=== PATIENT | female | born 1990 | race Caucasian/White ===

== ENCOUNTER 2017-12-12 17:57 | Emergency (ER) | payer MEDICAID ==
[2017-12-12 18:04] VITALS: O2SAT 98
[2017-12-12] MEDS ORDERED: NS 1,000 ML IV ONE (18:26)
[2017-12-12] MEDS ORDERED: DEXAMETHASONE 10 MG/ML VIAL IVP ONE (18:26)
--- NOTE | 2017-12-12 18:26 | EDPHY ---
General - History Smoking Status: Current every day smoker Time Seen by Provider: 12/12/17 18:13 Narrative: The patient was evaluated and managed by the physician's anesthesiologist assistant. My cosignature indicates that I reviewed the chart and I agree with the findings and plan of care as documented. I am the secondary supervising physician. ( Michelle Jain) CHIEF COMPLAINT: Sore throat, flu-like symptoms HISTORY OF PRESENT ILLNESS: Patient presents with complaints of severe sore throat. Symptoms started last night when she tried to go to bed. She has pain on both sides of throat, with the left is greater than the right. It is severe. Able to tolerate liquids but no solids. She also has body aches, fevers and chills, cough, weakness, arthralgia. Occasional headache. No neck pain or stiffness. Symptoms are constant. They do not improve with liquids or oral anti-inflammatories. She has no chest pain but does report a mucus type cough. She reports diagnosis of pneumonia just before years, treated at [facility]. She has no history of peritonsillar abscess but does have recurrent strep infections. No other associated complaints or modifying factors. REVIEW OF SYSTEMS: Ten systems reviewed and are negative unless otherwise noted in the HPI PCP: [facility] SPECIALISTS: Seen Psychiatry outpatient PAST MEDICAL HISTORY: PTSD, anxiety, depression. Recent diagnosis of pneumonia. Questionable diagnosis of ADD PAST SURGICAL HISTORY: [place] tooth extraction remotely SOCIAL HISTORY: Daily smoker. Occasional marijuana use. Does not currently work FAMILY HISTORY: Noncontributory EXAMINATION General Appearance: Alert, no distress Head: normocephalic, atraumatic Eyes: Pupils equal and round, no conjunctival pallor or injection ENT, Mouth: Mucous membranes moist. Uvula is midline. The tonsils are significantly enlarged with exudate. The tonsils are not touching. The uvula does not deviate. It does come into contact with the left tonsil but remains midline. There is no trismus. Her airway is widely patent. Neck: Normal inspection, supple, non-tender. No meningeal signs. Respiratory: Mild rhonchi throughout. No wheezing. No crackles. No diminishment. No retractions or distress Cardiovascular: Regular rate and rhythm. No murmur Gastrointestinal: Abdomen is soft and nontender Back: non-tender, no bony abnormalities Neurological: A&O, nonfocal, normal gait Skin: Warm and dry, no rash. No petechiae or purpura Extremities: Nontender, no pedal edema Psychiatric: Mood and affect normal DIFFERENTIAL DIAGNOSES: Including but not limited to strep tonsillitis, viral pharyngitis, bacterial pharyngitis, peritonsillar abscess, influenza, pneumonia, upper respiratory infection MDM: 6:20 p.m. Acute tonsillitis with influenza type symptoms as well. She does have a significant exudate of tonsillitis. The left tonsil is larger than the right. Uvula is not deviated away from the left tonsil. There is no trismus. Vital signs are within normal limits. She does have some rhonchi on auscultation. She also has diagnosis of pneumonia approximately a month and a half ago and continues to smoke. I have ordered chest x-ray, laboratory studies, IV fluid. I will discuss with Dr. Jain 6:35 p.m. I discussed the case with Dr. Jain, and we are in agreement that we will discuss the case with ENT at this time. 6:43 p.m. Case discussed with the on-call ENT PA, Freida Mtz. Based on my description of the patient's history of present illness and exam she agrees with no surgical intervention or CT scan at this time. She does agree with and recommend Decadron and clindamycin with repeat, serial evaluations over 24-48 hours. 7:15 p.m. Rapid strep test is negative. CBC reveals leukocytosis but Laboratory studies are otherwise unremarkable. I have ordered CT scan of the neck soft tissue to evaluate for the possibility of developing peritonsilar abscess. 7:30 p.m. I re-evaluated the patient. I informed her of the CT scan of the neck soft tissue and IV clindamycin. She is refusing the CT scan. She would like to go home at this time. We discussed the risks, benefits and alternatives. Although my clinical suspicion is low for abscess, I cannot rule this out 100% by clinical examination. I do not appreciate any fluctuance of the tonsils, but this is why I ordered a CT scan. We discuss all of this and she is willing to assume the risk of being discharged home without scan. I Will start her on clindamycin. I will provide short course of pain medication. Also provide another dose of Decadron tomorrow. She has strict ED precautions to return should she have any worsening symptoms or difficulty breathing. She is also instructed to return to emergency department tomorrow for re-evaluation and again on Thursday with the ENT physician as provided. She voiced her understanding of this and she will be discharged home at this time. She is in stable condition with airway widely patent. SUPERVISION: Patient was independently examined, but I discussed the case with my secondary supervising physician Dr. Jain ([facility]) - Objective Vital Signs: Initial Vital Signs Temperature (C) 98.2 F 12/12/17 18:01 Heart Rate 94 12/12/17 18:01 Respiratory Rate 18 12/12/17 18:01 Blood Pressure 106/64 12/12/17 18:01 O2 Sat (%) 98 12/12/17 18:01 O2 Delivery Mode Room Air Allergies/Adverse Reactions: No Known Allergies Allergy (Unverified 12/12/17 18:00) Home Medications: Medication Instructions Recorded ARIPiprazole [Abilify 2 mg (*)] 2 mg PO DAILY 12/12/17 Acetaminophen/Codeine 300/30Mg 1 each PO Q6 PRN #7 tab 12/12/17 [Tylenol #3 (*)] Clindamycin 300 mg PO Q6 #80 cap 12/12/17 Dexamethasone [Decadron 4 MG (*)] 8 mg PO DAILY #2 tab 12/12/17 Naproxen [Naprosyn] 500 mg PO 12/12/17 Ondansetron Odt [Zofran Odt 4 mg 4 mg PO Q6 PRN #12 tab 12/12/17 (*)] buPROPion [Wellbutrin] 100 mg PO 12/12/17 clonazePAM [CLONAZEPAM] 0.5 mg PO 12/12/17 Laboratory Results: Laboratory Results 12/12/17 18:30 12/12/17 18:30 12/12/17 12/12/17 12/12/17 Unknown 18:30 18:30 WBC RBC Hgb Hct MCV MCH MCHC RDW Plt Count MPV Neut % (Auto) Lymph % (Auto) [place] % (Auto) Eos % (Auto) Baso % (Auto) Nucleat RBC Rel Count Absolute Neuts (auto) Absolute Lymphs (auto) Absolute Monos (auto) Absolute Eos (auto) Absolute Basos (auto) Absolute Nucleated RBC Immature Gran % Immature Gran # Sodium Potassium Chloride Carbon Dioxide Anion Gap BUN Creatinine Estimated GFR Glucose Calcium Beta HCG, Qual Nasal Influenza A PCR NEGATIVE FOR FLU A (NEGATIVE) Nasal Influenza B PCR NEGATIVE FOR FLU B (NEGATIVE) Group A Strep Screen NEGATIVE (NEGATIVE) Group A Strep DNA Pending 12/12/17 12/12/17 12/12/17 18:30 18:30 18:30 WBC 18.11 10^3/uL H 10^3/uL (3.80-9.50) RBC 4.22 10^6/uL 10^6/uL (4.18-5.33) Hgb 12.2 g/dL L g/dL (12.6-16.3) Hct 36.9 % L % (38.0-47.0) MCV 87.4 fL fL (81.5-99.8) MCH 28.9 pg pg (27.9-34.1) MCHC 33.1 g/dL g/dL (32.4-36.7) RDW 13.3 % % (11.5-15.2) Plt Count 265 10^3/uL 10^3/uL (150-400) MPV 10.1 fL fL (8.7-11.7) Neut % (Auto) 85.6 % H % (39.3-74.2) Lymph % (Auto) 6.9 % L % (15.0-45.0) [place] % (Auto) 6.8 % % (4.5-13.0) Eos % (Auto) 0.0 % L % (0.6-7.6) Baso % (Auto) 0.3 % % (0.3-1.7) Nucleat RBC Rel Count 0.0 % % (0.0-0.2) Absolute Neuts (auto) 15.51 10^3/uL H 10^3/uL (1.70-6.50) Absolute Lymphs (auto) 1.25 10^3/uL 10^3/uL (1.00-3.00) Absolute Monos (auto) 1.23 10^3/uL H 10^3/uL (0.30-0.80) Absolute Eos (auto) 0.00 10^3/uL L 10^3/uL (0.03-0.40) Absolute Basos (auto) 0.05 10^3/uL 10^3/uL (0.02-0.10) Absolute Nucleated RBC 0.00 10^3/uL 10^3/uL (0-0.01) Immature Gran % 0.4 % % (0.0-1.1) Immature Gran # 0.07 10^3/uL 10^3/uL (0.00-0.10) Sodium 141 mEq/L mEq/L (135-145) Potassium 3.5 mEq/L mEq/L (3.5-5.2) Chloride 105 mEq/L mEq/L (97-110) Carbon Dioxide 20 mEq/l L mEq/l (22-31) Anion Gap 16 mEq/L mEq/L (8-16) BUN 7 mg/dL mg/dL (7-23) Creatinine 0.8 mg/dL mg/dL (0.6-1.0) Estimated GFR > 60 Glucose 101 mg/dL H mg/dL (70-100) Calcium 9.7 mg/dL mg/dL (8.5-10.4) Beta HCG, Qual NEGATIVE Nasal Influenza A PCR Nasal Influenza B PCR Group A Strep Screen Group A Strep DNA Medications Given: Discontinued Medications Clindamycin (Clindamycin) 300 mg PO EDNOW ONE PRN Reason: Protocol Stop: 12/12/17 19:32 Last Admin: 12/12/17 19:39 Dose: 300 mg Dexamethasone (Decadron Injection) 10 mg IVP EDNOW ONE Stop: 12/12/17 18:27 Last Admin: 12/12/17 18:42 Dose: 10 mg Diphenhydramine HCl (Benadryl Injection) 25 mg IVP EDNOW ONE Stop: 12/12/17 18:27 Last Admin: 12/12/17 18:42 Dose: 25 mg Sodium Chloride (Ns) 1,000 mls @ 0 mls/hr IV EDNOW ONE; Wide Open PRN Reason: Protocol Stop: 12/12/17 18:27 Last Admin: 12/12/17 18:42 Dose: 1,000 mls Clindamycin Phosphate/Dextrose (Cleocin 900 Mg (Premix)) 50 mls @ 100 mls/hr IV EDNOW ONE PRN Reason: Protocol Stop: 12/12/17 19:46 Last Admin: 12/12/17 19:31 Dose: Not Given Departure - Departure Disposition: Home, Routine, Self-Care Clinical Impression: Acute bacterial tonsillitis Acute pharyngitis Qualifiers: Pharyngitis/tonsillitis etiology: unspecified etiology Qualified Code(s): J02.9 - Acute pharyngitis, unspecified Condition: Good Instructions: Pharyngitis (ED), Tonsillitis (ED) Additional Instructions: 1. Prescription medications as discussed to completion 2. Return to emergency department immediately for worsening symptoms, shortness of breath, difficulty opening her mouth, fever, intolerance of liquids 3. Return to emergency department on Thursday for re-evaluation 4. Follow up with ENT physician on Thursday for re-evaluation outpatient Referrals: Nelson Pacheco MD [Medical Doctor] - As per Instructions [facility],. [Clinic] - As per Instructions Prescriptions: Acetaminophen/Codeine 300/30Mg [Tylenol #3 (*)] 1 each PO Q6 PRN #7 tab PRN Reason: Pain, Mild Clindamycin 300 mg PO Q6 #80 cap Dexamethasone [Decadron 4 MG (*)] 8 mg PO DAILY #2 tab Ondansetron Odt [Zofran Odt 4 mg (*)] 4 mg PO Q6 PRN #12 tab PRN Reason: Nausea/Vomiting, Use 1st
[2017-12-12 18:44] LABS: PLATELET COUNT 265 10^3/uL (150-400)
[2017-12-12] MEDS ORDERED: CLINDAMYCIN 900 MG/DEXTROSE 50 ML IV ONE (19:17)
[2017-12-12] MEDS ORDERED: CLINDAMYCIN 150 MG CAP PO ONE (19:31)
[2017-12-12 19:42] VITALS: BP 117/73; PULSE 92; RESP 20; TEMP 98.1
== END 2017-12-12 20:17 | disposition home or self-care (01) ==
DX: J03.90 Acute tonsillitis, unspecified (principal); F17.200 Nicotine dependence, unspecified, uncomplicated
CPT/HCPCS: 96374; J1100; J1200

== ENCOUNTER 2018-01-28 11:42 | Inpatient (IN) | payer MEDICAID ==
[2018-01-28] MEDS ORDERED: ONDANSETRON 4 MG/2 ML VIAL IVP ONE (12:14)
[2018-01-28 12:35] LABS: PLATELET COUNT 266 10^3/uL (150-400)
--- NOTE | 2018-01-28 13:00 | EDPHY ---
General Time Seen by Provider: 01/28/18 12:46 Narrative: CHIEF COMPLAINT: Flank pain HISTORY OF PRESENT ILLNESS: Patient presents with complains of 3 days history of right-sided flank abdominal pain. Gradual onset. Constant duration. Rated as severe, 10/10. No position of comfort. Nausea, vomiting and sweating. Subjective fever at home. No trauma or injury. She has no dysuria urinary frequency, but she never does when she has infections. She feels this is the same as previous "kidney infections." No previous abdominal surgeries. No other associated complaints or modifying factors. REVIEW OF SYSTEMS: Ten systems reviewed and are negative unless otherwise noted in the HPI PCP: [facility] SPECIALISTS: None PAST MEDICAL HISTORY: Pyelonephritis, anxiety, depression, tonsillitis PAST SURGICAL HISTORY: No recent surgeries SOCIAL HISTORY: Daily smoker. Occasional marijuana use. No drug use. Does not work FAMILY HISTORY: Noncontributory EXAMINATION General Appearance: Alert, no distress. Well-developed well-nourished. Diaphoretic. In obvious discomfort Head: normocephalic, atraumatic Eyes: Pupils equal and round, no conjunctival pallor or injection ENT, Mouth: Mucous membranes moist Neck: Normal inspection, supple, non-tender Respiratory: Lungs are clear to auscultation. No wheezing, rhonchi or crackles Cardiovascular: Tachycardic rate. Regular rhythm. Gastrointestinal: Abdomen is soft and nondistended. There is moderate to severe tenderness in the right flank and right side of the abdomen. No guarding. No tympany. No rigidity. Bowel sounds are symmetric in all quadrants. Back: non-tender, no bony abnormalities Neurological: A&O, nonfocal, normal gait Skin: Warm and dry, no rash no petechiae or purpura Extremities: Nontender, no pedal edema Psychiatric: Mood and affect normal DIFFERENTIAL DIAGNOSES: Including but not limited to pyelonephritis, sepsis, urosepsis, renal colic, ureteral colic, colitis, diverticulitis, appendicitis, cholecystitis, cholelithiasis MDM: 12:50 p.m. Right flank pain and right-sided abdominal pain of 3 days duration. Pain is described as typical for previous pyelonephritis. CBC was obtained prior to my examination revealed leukocytosis of 22. The differential is pending. She is febrile time arrival in tachycardic. Thus I have ordered sepsis workup. This includes blood cultures and lactic acid. IV fluid infusing. She is in moderate amount of pain of order IV pain medication as well. I have discussed with Dr. Bhatia. 1:05 p.m. Patient does have abnormal liver functions with transaminitis, hyperbilirubinemia, elevated alkaline phosphatase. Her urine dip is negative for any abnormalities. I have ordered ultrasound of the gallbladder. 1:35 p.m. Lactic acid is normal 1.7. Urinalysis is positive with leukocytes, red blood cells, urobilinogen, nitrates. Ultrasound pending. 2:10 p.m. Patient re-evaluated. Ultrasound has been performed. The official interpretation is pending, but there was no obvious abnormality per auto emissions technician. I have re-evaluated the patient she is still in significant amount of pain. She is about to receive another dose of IV pain medication. 2:15 p.m. Case discussed with hospitalist Dr. Ludy Salcedo. She will admit the patient to her service. General surgery consultation is pending. She is admitted in stable condition. 2:25 p.m. Notified by radiologist Dr. Hernandez. Ultrasound is unremarkable. No abnormality of the gallbladder or right kidney detected. No dilatation of the common bile duct. 2:30 p.m. Case discussed with surgeon Dr. Valladares. He will provide consultation. 2:[address] Salcedo is currently examining the patient. We also discussed the possibility of ascending cholangitis and Dr. Salcedo as at of [facility] for this. Patient is admitted in stable condition. At this point she does meet criteria for sepsis from pyelonephritis. She does not meet criteria for severe sepsis or septic shock. SUPERVISION: Patient was independently examined, but I discussed the case with my primary supervising physician Dr. Bhatia. - Diagnostics Imaging Results: Imaging Impressions Abdomen Ultrasound 01/28/18 13:08 Impression: 1. No acute findings in the abdomen. 2. Elongated right hepatic lobe, which could be related to hepatomegaly or a Tyler's lobe (normal variant). Findings discussed with Inderjit Davenport PA-C on January 28, 2018 at 1426 hours. - History Smoking Status: Current every day smoker - Objective Vital Signs: Initial Vital Signs Temperature (C) 102.4 F H 01/28/18 11:45 Heart Rate 101 H 04/12/18 11:45 Respiratory Rate 16 01/28/18 11:45 Blood Pressure 105/73 01/28/18 11:45 O2 Sat (%) 97 01/28/18 11:45 O2 Delivery Mode Room Air Allergies/Adverse Reactions: No Known Allergies Allergy (Unverified 12/12/17 18:00) Home Medications: Medication Instructions Recorded ARIPiprazole [Abilify 2 mg (*)] 2 mg PO HS 12/12/17 Naproxen [Naprosyn] 500 mg PO BID PRN 12/12/17 Albuterol [Proventil Inhaler HFA 1 - 2 puffs IH Q4H PRN 01/28/18 (*)] Lisdexamfetamine Dimesylate 20 mg PO DAILY 01/28/18 [Vyvanse] buPROPion XL [Wellbutrin Xl] 150 mg PO DAILY 01/28/18 Laboratory Results: Laboratory Results 01/28/18 11:50 01/28/18 11:50 01/28/18 01/28/18 01/28/18 13:05 12:58 12:54 WBC RBC Hgb Hct MCV MCH MCHC RDW Plt Count MPV Neut % (Auto) Lymph % (Auto) [place] % (Auto) Eos % (Auto) Baso % (Auto) Nucleat RBC Rel Count Absolute Neuts (auto) Absolute Lymphs (auto) Absolute Monos (auto) Absolute Eos (auto) Absolute Basos (auto) Absolute Nucleated RBC Immature Gran % Seg Neutrophils % Band Neutrophils % Lymphocytes % Monocytes % Immature Gran # Absolute Seg Neuts Absolute Band Neuts Absolute Lymphocytes Absolute Monocytes RBC/WBC/PLT Morphology Platelet Estimate PT 14.7 SEC SEC (12.0-15.0) INR 1.13 (0.83-1.16) APTT 31.1 SEC SEC (23.0-38.0) VBG Lactic Acid 1.7 mmol/L mmol/L (0.7-2.1) Sodium Potassium Chloride Carbon Dioxide Anion Gap BUN Creatinine Estimated GFR Glucose Calcium Total Bilirubin Conjugated Bilirubin Unconjugated Bilirubin AST ALT Alkaline Phosphatase Total Protein Albumin Lipase Beta HCG, Qual Urine Color ARACELIS Urine Appearance MODERATELY TURBID Urine pH 5.0 (5.0-7.5) Ur Specific [place] 1.016 (1.002-1.030) Urine Protein 2+ H (NEGATIVE) Urine Ketones 1+ H (NEGATIVE) Urine Blood 2+ H (NEGATIVE) Urine Nitrate POSITIVE H (NEGATIVE) Urine Bilirubin POSITIVE H (NEGATIVE) Urine Urobilinogen 4.0 EU H EU (0.2-1.0) Ur Leukocyte Esterase 2+ H (NEGATIVE) Urine RBC 15-25 /hpf H /hpf (0-3) Urine WBC 50-182 /hpf H /hpf (0-3) Ur Epithelial Cells 1+ /lpf /lpf (NONE-1+) Urine Bacteria 1+ /hpf H /hpf (NONE SEEN) Urine Mucus 2+ /lpf H /lpf (NONE-1+) Urine Glucose NEGATIVE (NEGATIVE) Hepatitis A IgM Ab Hep Bs Antigen Hep B Core IgM Ab Hepatitis C Antibody 01/28/18 01/28/18 01/28/18 12:54 12:54 11:50 WBC RBC Hgb Hct MCV MCH MCHC RDW Plt Count MPV Neut % (Auto) Lymph % (Auto) [place] % (Auto) Eos % (Auto) Baso % (Auto) Nucleat RBC Rel Count Absolute Neuts (auto) Absolute Lymphs (auto) Absolute Monos (auto) Absolute Eos (auto) Absolute Basos (auto) Absolute Nucleated RBC Immature Gran % Seg Neutrophils % Band Neutrophils % Lymphocytes % Monocytes % Immature Gran # Absolute Seg Neuts Absolute Band Neuts Absolute Lymphocytes Absolute Monocytes RBC/WBC/PLT Morphology Platelet Estimate PT INR APTT VBG Lactic Acid Sodium 134 mEq/L L mEq/L (135-145) Potassium 3.3 mEq/L L mEq/L (3.5-5.2) Chloride 96 mEq/L L mEq/L (97-110) Carbon Dioxide 19 mEq/l L mEq/l (22-31) Anion Gap 19 mEq/L H mEq/L (8-16) BUN 7 mg/dL mg/dL (7-23) Creatinine 0.8 mg/dL mg/dL (0.6-1.0) Estimated GFR > 60 Glucose 93 mg/dL mg/dL (70-100) Calcium 9.0 mg/dL mg/dL (8.5-10.4) Total Bilirubin 3.2 mg/dL H mg/dL (0.1-1.4) Conjugated Bilirubin 1.4 mg/dL H mg/dL (0.0-0.5) Unconjugated Bilirubin 1.8 mg/dL H mg/dL (0.0-1.1) AST 58 IU/L H IU/L (14-46) ALT 91 IU/L H IU/L (9-52) Alkaline Phosphatase 215 IU/L H IU/L (38-126) Total Protein 7.6 g/dL g/dL (6.3-8.2) Albumin 4.1 g/dL g/dL (3.5-5.0) Lipase 18 IU/L L IU/L (23-300) Beta HCG, Qual NEGATIVE Urine Color Urine Appearance Urine pH Ur Specific [place] Urine Protein Urine Ketones Urine Blood Urine Nitrate Urine Bilirubin Urine Urobilinogen Ur Leukocyte Esterase Urine RBC Urine WBC Ur Epithelial Cells Urine Bacteria Urine Mucus Urine Glucose Hepatitis A IgM Ab Hep Bs Antigen Hep B Core IgM Ab Hepatitis C Antibody 01/28/18 01/28/18 11:50 09:00 WBC 22.69 10^3/uL H 10^3/uL (3.80-9.50) RBC 4.55 10^6/uL 10^6/uL (4.18-5.33) Hgb 13.0 g/dL g/dL (12.6-16.3) Hct 40.0 % % (38.0-47.0) MCV 87.9 fL fL (81.5-99.8) MCH 28.6 pg pg (27.9-34.1) MCHC 32.5 g/dL g/dL (32.4-36.7) RDW 14.1 % % (11.5-15.2) Plt Count 266 10^3/uL 10^3/uL (150-400) MPV 11.3 fL fL (8.7-11.7) Neut % (Auto) Not Reported Lymph % (Auto) Not Reported [place] % (Auto) Not Reported Eos % (Auto) Not Reported Baso % (Auto) Not Reported Nucleat RBC Rel Count 0.0 % % (0.0-0.2) Absolute Neuts (auto) Not Reported Absolute Lymphs (auto) Not Reported Absolute Monos (auto) Not Reported Absolute Eos (auto) Not Reported Absolute Basos (auto) Not Reported Absolute Nucleated RBC 0.00 10^3/uL 10^3/uL (0-0.01) Immature Gran % Not Reported Seg Neutrophils % 89 % % Band Neutrophils % 1 % % Lymphocytes % 5 % % Monocytes % 5 % % Immature Gran # Not Reported Absolute Seg Neuts 20.19 10^/uL H 10^/uL (1.70-6.50) Absolute Band Neuts 0.23 10^3/uL 10^3/uL (0.00-0.70) Absolute Lymphocytes 1.13 10^3/uL 10^3/uL (1.00-3.00) Absolute Monocytes 1.13 10^3/uL H 10^3/uL (0.30-0.80) RBC/WBC/PLT Morphology NORMAL (NORMAL) Platelet Estimate ADEQUATE (ADEQ) PT INR APTT VBG Lactic Acid Sodium Potassium Chloride Carbon Dioxide Anion Gap BUN Creatinine Estimated GFR Glucose Calcium Total Bilirubin Conjugated Bilirubin Unconjugated Bilirubin AST ALT Alkaline Phosphatase Total Protein Albumin Lipase Beta HCG, Qual Urine Color Urine Appearance Urine pH Ur Specific [place] Urine Protein Urine Ketones Urine Blood Urine Nitrate Urine Bilirubin Urine Urobilinogen Ur Leukocyte Esterase Urine RBC Urine WBC Ur Epithelial Cells Urine Bacteria Urine Mucus Urine Glucose Hepatitis A IgM Ab NEGATIVE (NEGATIVE) Hep Bs Antigen NEGATIVE (NEGATIVE) Hep B Core IgM Ab NEGATIVE (NEGATIVE) Hepatitis C Antibody NEGATIVE (NEGATIVE) Microbiology Results: MICROBIOLOGY 01/28/18 13:05 Blood Blood Culture - Preliminary Medications Given: Hydromorphone/Sodium Chloride (Hydromorphone) 0.4 mg IVP Q4HRS PRN PRN Reason: Pain, Severe Unable to Take PO Stop: 02/07/18 14:39 Last Admin: 01/28/18 17:00 Dose: 0.4 mg Sodium Chloride (Ns) 1,000 mls @ 150 mls/hr IV CONT [facility] Stop: 07/27/18 14:29 Last Admin: 01/28/18 17:01 Dose: 1,000 mls Metronidazole/Sodium Chloride (Flagyl 500 Mg (Premix)) 100 mls @ 100 mls/hr IV Q8HRS JAIDA PRN Reason: Protocol Stop: 02/27/18 14:44 Last Admin: 01/28/18 15:31 Dose: 100 mls Potassium Chloride 10 meq/ (Sodium Chloride) 100 mls @ 100 mls/hr IV Q1H [facility] Stop: 01/28/18 17:59 Last Admin: 01/28/18 17:01 Dose: 100 mls Ketorolac Tromethamine (Toradol) 30 mg IVP Q6HRS PRN PRN Reason: Pain, Inflammatory Stop: 04/17/18 14:50 Last Admin: 01/28/18 15:31 Dose: 30 mg Ondansetron HCl (Zofran) 4 mg IVP Q4HRS PRN PRN Reason: Nausea/Vomiting, Can't Take PO Stop: 07/27/18 14:16 Last Admin: 01/28/18 16:58 Dose: 4 mg Discontinued Medications Sodium Chloride (Ns) 1,000 mls @ 0 mls/hr IV EDNOW ONE; Wide Open PRN Reason: Protocol Stop: 01/28/18 13:03 Last Admin: 01/28/18 13:06 Dose: 1,000 mls Ceftriaxone Sodium/Dextrose (Rocephin 1 Gm (Premix)) 50 mls @ 100 mls/hr IV EDNOW ONE PRN Reason: Protocol Stop: 01/28/18 14:38 Last Admin: 01/28/18 14:26 Dose: 50 mls Sodium Chloride (Ns) 1,000 mls @ 0 mls/hr IV EDNOW ONE; Wide Open PRN Reason: Protocol Stop: 01/28/18 14:14 Last Admin: 01/28/18 14:23 Dose: 1,000 mls Morphine Sulfate (Morphine) 4 mg IVP EDNOW ONE Stop: 01/28/18 13:01 Last Admin: 01/28/18 13:03 Dose: 4 mg Morphine Sulfate (Morphine) 4 mg IVP EDNOW ONE Stop: 01/28/18 13:48 Last Admin: 01/28/18 14:23 Dose: 4 mg Ondansetron HCl (Zofran) 4 mg IVP EDNOW ONE Stop: 01/28/18 12:15 Last Admin: 01/28/18 12:17 Dose: 4 mg Departure - Departure Disposition: [facility] Acute Clinical Impression: Pyelonephritis, Transaminitis, Hyperbilirubinemia Sepsis Qualifiers: Sepsis type: sepsis due to unspecified organism Qualified Code(s): A41.9 - Sepsis, unspecified organism Condition: Good
[2018-01-28 13:02] LABS: INR 1.13 (0.83-1.16); PROTIME(PATIENT) 14.7 SEC (12.0-15.0)
[2018-01-28] MEDS ORDERED: NS 1,000 ML IV ONE ×2 (13:02→14:13)
[2018-01-28] MEDS ORDERED: ACETAMINOPHEN 325 MG TAB PO PRN (14:17)
[2018-01-28] MEDS ORDERED: METRONIDAZOLE 500 MG/NACL/100 ML BAG IV ONE (14:48)
[2018-01-28] MEDS ORDERED: ALBUTEROL 60 PUFFS/8 GM MDI IH PRN (14:50)
[2018-01-28 15:24] LABS: HEPATITIS B SURFACE ANTIGEN NEGATIVE (NEGATIVE)
[2018-01-28 15:30] LABS: HEPATITIS A ANTIBODY IGM (BCH) NEGATIVE (NEGATIVE); HEPATITIS B CORE AB IGM NEGATIVE (NEGATIVE)
[2018-01-28] MEDS: KETOROLAC 30 MG/1 ML SDV IVP PRN (15:31)
--- NOTE | 2018-01-28 15:33 | GHP ---
[f rep st] HISTORY AND PHYSICAL DATE OF ADMISSION: 01/28/2018 CHIEF COMPLAINT: Right-sided flank pain. HISTORY OF PRESENT ILLNESS: A 27-year-old, female with history of pyelonephritis 2 times this past year requiring hospitalization, anxiety/ depression. Presenting with right suprapubic flank pain for the last 3 days. It is constant, dull, but then can become very sharp in nature, especially with movement. She has had minimal relief with Advil daily. Reports fevers, chills , sweats, nausea, vomiting. No diarrhea. Decreased appetite and oral intake. No headaches. No dysuria but increased urinary frequency. REVIEW OF SYSTEMS: I completed a 10-point review of systems, negative except as noted in HPI. PAST MEDICAL HISTORY: Anxiety, depression, tonsillitis. SOCIAL HISTORY: Just moved from [place]. Is not working. Daily marijuana. Cigarettes 4 a day. Occasional alcohol. FAMILY HISTORY: No diabetes or strokes. ALLERGIES: None. HOME MEDICATIONS: Wellbutrin 100 mg daily, Advil as needed, Abilify 2 mg daily. PHYSICAL EXAMINATION: VITAL SIGNS: Temperature 39.1, blood pressure 102/65, heart rate 101, respiration 18, and 93% on room air. GENERAL: Lying in bed, uncomfortable, crying, pale. HEENT: PERRLA. EOMI. Dry mucous membranes. CV : Tachy but regular. No murmurs, gallops, or rubs. LUNGS: Clear anteriorly. ABDOMEN: Obese, soft. Significant right upper quadrant pain with palpation. Right suprapubic and CVA tenderness. MUSCULOSKELETAL: 5/5 upper and lower extremity strength. NEUROLOGIC: 2-12 intact. PSYCH: Alert and oriented x3. Tearful. LABS: WBC 22, hemoglobin 13, hematocrit 40, platelets 266. INR is 1.13, PT is 14. Lactate is 1.7. Sodium 134, potassium 3.3, chloride 96, carbon dioxide 19 , anion gap 19, creatinine 0.8. Total bilirubin 3.2, conjugated 1.4, unconjugated 1.8. AST 58, ALT 91, alk phos 215, lipase 18. Negative . UA: 50-182 WBCs, +2 esterase, positive nitrate. Abdominal ultrasound pending. ASSESSMENT AND PLAN: 1. Sepsis with leukocytosis, tachycardia, urinary source. There is also concern for possible cholangitis with elevated bilirubin and right upper quadrant tenderness. I will cover with ceftriaxone and Flagyl now in case cholangitis. Dr. Valladares evaluated and wants CT. Blood/urine culture pending. Normal lactate. 2. Acute abdominal pain: pyelo vs. cholangitis. PRN Zofran, opioids 3. Tachycardia: from dehydration, pain: Aggressive intravenous fluids, pain control. 4. Depression/anxiety. home medications. 5. Hypovolemic, hyponatremia: due to decreased p.o. intake, nausea, vomiting. Intravenous fluids. 6. Hypokalemia. Will replete. 7. Diet n.p.o. for now. 8. Deep venous thrombosis prophylaxis: Lovenox. 9. Disposition: Patient warrants inpatient admission given acute sepsis, tachycardia, warranting intravenous antibiotics, fluids, and surgical consultation. /[id number]/MODL MTDD
[2018-01-28 15:42] LABS: HEPATITIS C ANTIBODY TOTAL NEGATIVE (NEGATIVE)
[2018-01-28] MEDS: ONDANSETRON 4 MG/2 ML VIAL IVP PRN (16:58)
[2018-01-28] MEDS: HYDROmorphone HCL/NS 0.5 MG/ML SYR IVP PRN (17:00)
[2018-01-28] MEDS: POTASSIUM Cl (KCl) 10 MEQ in NS 100 ML IV SCH ×3 (17:01→19:55)
[2018-01-28] MEDS: NS 1,000 ML IV SCH (17:01)
--- NOTE | 2018-01-28 18:16 | PDMN ---
Medical Necessity Medical necessity: Pt meets IP criteria per MD; est los >2 mn for eval/tx of acute sepsis, tachycardia & acute abdominal pain secondary to pyelonephritis vs cholangitis; admit for further workup/monitoring, Surgery consult, IVFs, pain management & IV abx; per H&P & order 01/28/18
[2018-01-28] MEDS ORDERED: IOPAMIDOL (ISOVUE-300) 100 ML BTL ONE (18:53)
[2018-01-28] MEDS: PROMETHAZINE HCL 25 MG/ML INJ IVP PRN (19:48)
--- NOTE | 2018-01-28 20:14 | GCON ---
[f rep st] CONSULTATION HISTORY OF PRESENT ILLNESS: A 27-year-old female was admitted from the ER with fever, right flank pa in and a UA suggestive of pyelonephritis. She has had history of pyelonephritis before. However, ngozi armstrong it is complicated by the fact that she has been vomiting, has a high white count and has elevated L FTs. Gallbladder ultrasound was done which was negative. I was asked to consult for possible biliar y disease. She also has some right CVA tenderness and has had pyelonephritis more than once before. REVIEW OF SYSTEMS: Negative 10-point review of systems, except related to the HPI. Specifically, ngozi armstrong does smoke half pack per day. ALLERGIES: None. MEDICATIONS: Wellbutrin and Abilify. FAMILY HISTORY: Noncontributory. SOCIAL HISTORY: Reveals she is unemployed and just moved here from [place]. She does smoke half pac k per day. PAST MEDICAL HISTORY: Includes anxiety and depression, tonsillitis, but no surgeries. PHYSICAL EXAMINATION: GENERAL: An alert 27-year-old female who is afebrile now, but apparently had a temperature of 39 earlier. HEAD and NECK: Reveals no icterus, no adenopathy, no oral lesions. NE CK: Supple, nontender without thyromegaly. CHEST: Clear and symmetric. COR: Regular tachycardia without murmurs. ABDOMEN: Soft. She has positive bowel sounds. She has some mild right upper quad rant tenderness. She has more discomfort in the right flank and the CVA area on the right. EXTREMIT IES: Benign with full range of motion. Full pulses. NEUROLOGIC: Physiologic with intact cranial n erves. PSYCH: Reveals her to be alert, oriented, and cooperative. IMPRESSION: Story consistent with pyelonephritis. However, the LFTs are somewhat concerning despite a normal gallbladder ultrasound. I would recommend CT scan for further evaluation and confirm the p resence of pyelonephritis. A HIDA scan might be useful down the line but she has had too much pain m edicine for accurate HIDA scan at this point. Her lipase is normal as well. /[id number]/MODL
[2018-01-28] MEDS: ARIPiprazole 2 MG TAB PO SCH (21:59)
[2018-01-29] MEDS: KETOROLAC 30 MG/1 ML SDV IVP PRN (00:56)
[2018-01-29] MEDS: ONDANSETRON 4 MG/2 ML VIAL IVP PRN ×3 (01:03→20:18)
[2018-01-29] MEDS: HYDROmorphone HCL/NS 0.5 MG/ML SYR IVP PRN ×3 (02:09→10:04)
[2018-01-29] MEDS: PROMETHAZINE HCL 25 MG/ML INJ IVP PRN ×2 (02:17→17:22)
[2018-01-29] MEDS: NS 1,000 ML IV SCH (05:30)
[2018-01-29] MEDS: buPROPion XL 150 MG TAB PO SCH (09:12)
--- NOTE | 2018-01-29 10:25 | HOSPPROG ---
Hospitalist Progress Note Assessment/Plan: 27 yo F with hx of prior pyelonephritis admitted for suprapubic and flank pain found to be 2/2 recurrent pyelonephritis # pyelonephritis: with UA c/w infection and personal review of abdominal CT c/w acute pyelonephritis. Cultures pending. CTX started empirically. Unclear why patient has had 3 bouts in the recent past, she states she has always had "kidney problems", query underlying reflux. Recommend she f/u with urology after dc. # sepsis: in setting of above, afebrile now since admission, wbc remains elevated # elevated lfts: initially concerning for cholangitis however this has been ruled out by imaging, general surgery has evaluated but no plans for surgery at this time # depression/anxiety: continue her home medications # anemia: significant drop in h/h overnight, no e/o bleeding, will repeat but suspect largely dilutional # pain: pain has been difficult to control on high dose opiates, will add toradol scheduled, patient states she does not habitually use opiates # dispo: IP status Patient new to my care. Old records reviewed and summarized as above. Subjective: patient continues to c/o significant pain, states that the dilaudid does not seem to be enough to control her pain Objective: Vital Signs Temp Pulse Resp BP Pulse Ox 37 C 77 12 102/68 100 01/29/18 08:00 01/29/18 08:00 01/29/18 08:00 01/29/18 08:00 01/29/18 08:00 Laboratory Results 01/29/18 05:05 01/29/18 05:05 01/28/18 01/29/18 01/30/18 05:59 05:59 05:59 Intake Total 3448 Balance 3448 PT 14.7 SEC (12.0-15.0) 01/28/18 12:54 INR 1.13 (0.83-1.16) 01/28/18 12:54 awake alert nad anicteric op clear rrr no mrg cta b soft ttp suprapubic region and cva tenderness, no rebound or guarding no cce warm dry well perfused oriented appropriate does not appear in pain ICD10 Worksheet Patient Problems: Problems Problem Status Onset Acute bacterial tonsillitis Acute Acute pharyngitis Acute Sepsis Acute Pyelonephritis Acute Transaminitis Acute Hyperbilirubinemia Acute
[2018-01-29] MEDS: ONDANSETRON DISINTEGRATING 4 MG TAB PO PRN ×2 (10:27→15:24)
[2018-01-29] MEDS: oxyCODONE IR 5 MG TAB PO PRN ×4 (10:54→20:17)
--- NOTE | 2018-01-29 11:46 | SOAPPROG ---
SOAP Progress Note Assessment/Plan: Assessment: 27 y/o female with pyelonephritis and elevated LFTs S: Experiencing significant pain. O: Alert Afebrile LFTs trending down RRR No increased WOB Abdomen: soft, but tender + flank pain Plan: Given her CT was negative for acute gall bladder disease and her LFTs are improving, she does not need surgery to have her GB out. We will sign off on her at this point. 01/29/18 11:43 Objective: Vital Signs Temp Pulse Resp BP Pulse Ox 36.6 C 94 20 110/68 92 01/29/18 11:15 01/29/18 11:15 01/29/18 11:15 01/29/18 11:15 01/29/18 11:15 Laboratory Results 01/29/18 05:05 01/29/18 05:05 01/28/18 01/29/18 01/30/18 05:59 05:59 05:59 Intake Total 3448 Balance 3448 PT 14.7 SEC (12.0-15.0) 01/28/18 12:54 INR 1.13 (0.83-1.16) 01/28/18 12:54 ICD10 Worksheet Patient Problems: Problems Problem Status Onset Hyperbilirubinemia Acute Pyelonephritis Acute Sepsis Acute Transaminitis Acute Acute bacterial tonsillitis Acute Acute pharyngitis Acute
[2018-01-29] MEDS ORDERED: BISACODYL 10 MG SUPP PR PRN (13:39)
[2018-01-29] MEDS ORDERED: MAGNESIUM HYDROXIDE 30 ML UDCUP PO PRN (13:39)
[2018-01-29] MEDS ORDERED: LACTULOSE 20 GM/30 ML UDCUP PO PRN (13:39)
[2018-01-29] MEDS ORDERED: POLYETHYLENE GLYCOL 3350 17 GM PKT PO PRN (13:39)
[2018-01-29] MEDS: Lisdexamfetamine Dimesylate [Vyvanse] 20 MG PO SCH (14:00)
--- NOTE | 2018-01-29 16:19 | ASMTCMCOM ---
CM Note CM Note Notes: Reviewed chart and discussed w/RN. Anticipate dc home independantly at dc. CM available if needs arise. Date Signed: 01/29/2018 04:18 PM Electronically Signed By:Meredith Armendariz RN
[2018-01-29] MEDS: SENNOSIDES/DOCUSATE SODIUM TAB PO SCH (21:08)
[2018-01-29] MEDS: ARIPiprazole 2 MG TAB PO SCH (21:22)
[2018-01-30] MEDS: PROMETHAZINE HCL 25 MG/ML INJ IVP PRN ×2 (00:38→06:40)
[2018-01-30] MEDS: HYDROmorphone HCL/NS 0.5 MG/ML SYR IVP PRN ×2 (00:38→05:48)
[2018-01-30] MEDS: NS 1,000 ML IV SCH ×2 (00:50→23:53)
[2018-01-30] MEDS: KETOROLAC 30 MG/1 ML SDV IVP PRN (05:12)
[2018-01-30] MEDS: ONDANSETRON 4 MG/2 ML VIAL IVP PRN ×4 (05:48→23:53)
--- NOTE | 2018-01-30 09:11 | HOSPPROG ---
Hospitalist Progress Note Assessment/Plan: 27 yo F with hx of prior pyelonephritis admitted for suprapubic and flank pain found to be 2/2 recurrent pyelonephritis # pyelonephritis: with UA c/w infection and personal review of abdominal CT c/w acute pyelonephritis. Cultures pending. CTX started empirically. Unclear why patient has had 3 bouts in the recent past, she states she has always had "kidney problems", query underlying reflux. Recommend she f/u with urology after dc. # e coli bacteremia: with source presumed as above but no urine cultures obtained prior to abx, surveillance cultures obtained, sensitivities pending. Will ask ID to get involved for patient f/u after dc (patient does not have PCP ) # sepsis: in setting of above, afebrile now since admission, wbc remains elevated # elevated lfts: initially concerning for cholangitis however this has been ruled out by imaging, general surgery has evaluated but no plans for surgery at this time, suspect this is due to sepsis, will continue to trend # depression/anxiety: continue her home medications # anemia: significant drop in h/h overnight, no e/o bleeding, will repeat but suspect largely dilutional # pain: pain has been difficult to control on high dose opiates, patient states she does not habitually use opiates, does not feel that toradol helps either, will attempt to transition to oral pain meds # dispo: IP status Subjective: no significant overnight events, patient notes that flank pain is improved but now with more headache, she is having difficulty walking and feels that walking makes the pain worse Objective: Vital Signs Temp Pulse Resp BP Pulse Ox 36.6 C 81 18 118/70 98 01/30/18 07:54 01/30/18 07:54 01/30/18 07:54 01/30/18 07:54 01/30/18 07:54 Laboratory Results 01/29/18 12:44 01/29/18 05:05 01/29/18 01/30/18 01/31/18 05:59 05:59 05:59 Intake Total 3448 500 Output Total 50 Balance 3448 450 PT 14.7 SEC (12.0-15.0) 01/28/18 12:54 INR 1.13 (0.83-1.16) 01/28/18 12:54 awake alert nad anicteric op clear rrr no mrg cta b soft ttp suprapubic region and cva tenderness, no rebound or guarding no cce warm dry well perfused oriented appropriate does not appear in pain ICD10 Worksheet Patient Problems: Problems Problem Status Onset Hyperbilirubinemia Acute Pyelonephritis Acute Sepsis Acute Transaminitis Acute Acute bacterial tonsillitis Acute Acute pharyngitis Acute
[2018-01-30] MEDS: buPROPion XL 150 MG TAB PO SCH (10:18)
[2018-01-30] MEDS: SENNOSIDES/DOCUSATE SODIUM TAB PO SCH ×2 (10:18→20:42)
[2018-01-30] MEDS: ACETAMINOPHEN 500 MG TAB PO SCH ×3 (11:25→20:41)
[2018-01-30] MEDS: IBUPROFEN 600 MG TAB PO SCH ×4 (11:26→23:30)
[2018-01-30] MEDS: Lisdexamfetamine Dimesylate [Vyvanse] 20 MG PO SCH ×2 (13:39→14:05)
[2018-01-30] MEDS ORDERED: NICOTINE POLACRILEX 2 MG GUM B PRN (15:43)
[2018-01-30] MEDS: NICOTINE 21 MG/24 HR PATCH TD SCH (16:02)
[2018-01-30] MEDS: oxyCODONE IR 5 MG TAB PO PRN (16:09)
--- NOTE | 2018-01-30 18:53 | ASMTCMCOM ---
CM Note CM Note Notes: Approached by RN, she states she had a conversation that she came out here from [place] to be with girlfriend but now girlfriend and her have broken up and she may not have place to stay? Pt is connected with P d/t anxiety and depression. Pt is otherwise independent but may benefit from SW visit. DC Plan: Independent Date Signed: 01/30/2018 06:52 PM Electronically Signed By:Eleni Jackson RN
[2018-01-30] MEDS: ARIPiprazole 2 MG TAB PO SCH (20:42)
[2018-01-31] MEDS: IBUPROFEN 600 MG TAB PO SCH ×3 (00:13→13:21)
[2018-01-31] MEDS: ONDANSETRON DISINTEGRATING 4 MG TAB PO PRN (02:02)
[2018-01-31] MEDS: ACETAMINOPHEN 500 MG TAB PO SCH ×3 (02:35→16:04)
[2018-01-31] MEDS: oxyCODONE IR 5 MG TAB PO PRN (04:07)
[2018-01-31] MEDS: ONDANSETRON 4 MG/2 ML VIAL IVP PRN ×2 (04:07→10:00)
[2018-01-31 05:20] LABS: PLATELET COUNT 206 10^3/uL (150-400)
[2018-01-31] MEDS ORDERED: PROTOCOL POTASSIUM 1 DOSE MISC PRN (08:31)
[2018-01-31] MEDS ORDERED: PROTOCOL MAGNESIUM 1 DOSE IV PRN (08:31)
[2018-01-31] MEDS ORDERED: POTASSIUM CL 10 MEQ TAB PO ONE (09:08)
[2018-01-31 09:13] VITALS: BP 117/77
[2018-01-31] MEDS: NICOTINE 21 MG/24 HR PATCH TD SCH (10:01)
--- NOTE | 2018-01-31 10:27 | PCMIDPN ---
Assessment/Plan: Patient seen and examined note dictated. E coli bacteremia secondary to pyelonephritis. E coli only resistant to Unasyn and Bactrim. Patient with recurrent episodes last in May 2017. She reports negative STD screen via [facility] recently. Okay to complete therapy with levofloxacin 750 mg once daily. Currently actively vomiting. Would give dose ceftriaxone today and discharge with 7 more days of levofloxacin. She can follow up in [facility] Objective: Vital Signs Temp Pulse Resp BP Pulse Ox 37 C 68 20 117/77 96 01/31/18 08:00 01/31/18 08:00 01/31/18 08:00 01/31/18 08:00 01/31/18 08:00 Laboratory Results 01/31/18 04:42 01/31/18 04:42 01/30/18 01/31/18 02/01/18 05:59 05:59 05:59 Intake Total 500 Output Total 50 Balance 450 ICD10 Worksheet Patient Problems: Problems Problem Status Onset Hyperbilirubinemia Acute Pyelonephritis Acute Sepsis Acute Transaminitis Acute Acute bacterial tonsillitis Acute Acute pharyngitis Acute
[2018-01-31] MEDS: SENNOSIDES/DOCUSATE SODIUM TAB PO SCH (10:57)
[2018-01-31] MEDS: buPROPion XL 150 MG TAB PO SCH (10:57)
--- NOTE | 2018-01-31 11:24 | GCON ---
[f rep st] CONSULTATION INFECTIOUS DISEASE CONSULTATION DATE OF CONSULTATION: 01/31/2018 REASON FOR CONSULTATION: Pyelonephritis complicated by E coli bacteremia, recurrent. REQUESTING PHYSICIAN: Humble Nicole MD. HISTORY OF PRESENT ILLNESS: A 27-year-old woman with a past medical history of pyelonephritis previo usly, who presents to the emergency room complaining of right suprapubic sharp flank pain with minima l relief of Advil, with associated fevers, chills, sweats, nausea, vomiting. Patient has been hospit alized now for 4 days and reports significant improvement in her pain and resolution of fever. She s till is having chronic nausea and vomiting. She has not had a bowel movement in 2 weeks by report. Her appetite is overall low. Denies specific insult. 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 Her last partner was a woman, but does not identify with any specific group. REVIEW OF SYSTEMS: A complete 10-point review of systems was performed and is negative except as men tioned in the HPI. The patient denies vaginal symptoms. PAST MEDICAL HISTORY/SURGICAL HISTORY: Curlew teeth extraction, depression, ADD and anxiety and recu rrent pyelonephritis last in May of 2017. She states she was treated with an antibiotic ending in "cillin." SOCIAL HISTORY: She moved from [place] in August of 2017. 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 She was seen in [facility] as per HPI. She is not currently sexually active or partnered. She uses marijuana and tobacco and alcohol. FAMILY HISTORY: Negative for diabetes or heart disease. ALLERGIES: NKDA. MEDICATIONS: Wellbutrin 100 mg daily, Abilify 2 mg daily. She has been on ceftriaxone 1 g IV daily since admission. PHYSICAL EXAMINATION: VITAL SIGNS: T-max was 39, T-current 37, blood pressure 117/77, heart rate 68 , respiratory rate 16, saturation 96% on room air. GENERAL: This is a young woman sitting up in bed , in mild distress secondary to vomiting. HEENT: Fair dentition. Slightly dry mucous membranes. N ASA: Supple. CARDIOVASCULAR: Regular rate. No murmurs. CHEST: Clear to auscultation bilaterally . ABDOMEN: No flank pain. Abdomen is soft, nontender. Bowel sounds are present. EXTREMITIES: No clubbing, cyanosis, or edema. SKIN: Patient had extensive tattooing including her scalp. No rashes. Multiple piercings. NEUROLOGIC: She is alert, oriented x4. Moving all 4 extrem ities equally. LABORATORY: White count 22,000 on admission, today 6000. AST/ALT 58/91, and today 14 and 43, now no rmalized. Total bilirubin 3.2 to normal 0.8. Hep serologies were negative. Blood cultures 2 sets f rom 01/28/2018, both show E coli and corresponding urinalysis showed pyuria. No urine culture was ob tained. Repeat blood cultures were obtained from the and are pending. CT scan from admission c orroborated clinical diagnosis of pyelonephritis. ASSESSMENT AND PLAN: This is a 27-year-old woman with recurrent pyelonephritis by history, this time complicated by Escherichia coli bacteremia, marks susceptible organism except for resistance to Bactri m and Unasyn. Patient's fever and labs have clinically improved on IV ceftriaxone, and it is appropr iate to transition patient to p.o. levofloxacin 750 daily for another week after discharge to complet jorge luis treat her infection. The patient can follow up in [facility] for long-term care. There is also discussion that she may return to [place]. Thank you for this consultation. Please call us for additional questions. /[id number]/MODL
[2018-01-31] MEDS: Lisdexamfetamine Dimesylate [Vyvanse] 20 MG PO SCH (13:20)
--- NOTE | 2018-01-31 15:02 | ASDISCHSUM ---
Discharge Information Plan Status:Home with No Needs Medically Cleared to Leave:01/31/2018 Discharge Date:01/31/2018 CM D/C Disposition:Home, Routine, Self-Care ADT D/C Disposition:Home, Routine, Self-Care Projected Discharge Date:01/31/2018 Transportation at D/C:Cab Voucher Discharge Delay Reason: Follow-Up Date:01/31/2018 Discharge Slot: Final Diagnosis: Placement Information Patient Contact Information Contact Name:LAMONT Relationship:Other Address:[address] [address] Work Phone: City:[place] Alternate Phone: State/Zip Code:[place] [address] Email: Financial Information Financial Class:Medicaid Primary Plan Desc:[employer] Primary Plan Number:[id number] Secondary Plan Desc: Secondary Plan Number: Assessment Information [facility] CM Progress Note CM Note CM Note Notes: Reviewed chart and discussed w/RN. Anticipate dc home independantly at [facility]. CM available if needs arise. Date Signed: 01/29/2018 04:18 PM Electronically Signed By:Meredith Armendariz RN [facility] CM Progress Note CM Note CM Note Notes: Approached by RN, she states she had a conversation that she came out here from [place] to be with girlfriend but now girlfriend and her have broken up and she may not have place to stay? Pt is connected with P d/t anxiety and depression. Pt is otherwise independent but may benefit from SW visit. DC Plan: Independent Date Signed: 01/30/2018 06:52 PM Electronically Signed By:Eleni Jackson RN Intervention Information
== END 2018-01-31 16:03 | disposition home or self-care (01) | DRG 720 ==
LOC: EDUNIT# → F3E 16:31
PROVIDERS: ADMIT Internal Medicine; ATTEND Internal Medicine
DX: A41.51 Sepsis due to Escherichia coli [E. coli] (principal); N10 Acute pyelonephritis; F32.9 Major depressive disorder, single episode, unspecified; F41.9 Anxiety disorder, unspecified; F17.210 Nicotine dependence, cigarettes, uncomplicated; F12.90 Cannabis use, unspecified, uncomplicated
CPT/HCPCS: 96374; G0472; J0696; J1170; J1885; J2270; J2405; J2550; J3480; Q9967